=== PATIENT | female | born 1970 | race Caucasian/White ===

== ENCOUNTER 2018-07-29 08:51 | Day surgery (SDC) | payer OTHER ==
[~2018-07-29 08:51] MED LIST: LIDOCAINE HCL 1% MPF 30 SOL ONE; PROPOFOL 500 MG/50 ML EMU IV ONE
[2018-07-29 10:45] VITALS: O2SAT 100
[2018-07-29 11:19] VITALS: BP 122/69; PULSE 66; RESP 18; TEMP 97.6
== END 2018-07-29 11:35 | disposition home or self-care (01) | DRG 951 ==
LOC: SURG 08:51
PROVIDERS: ATTEND Surgery
DX: Z12.11 Encounter for screening for malignant neoplasm of colon (principal)
CPT/HCPCS: J2001; J2704